=== PATIENT | female | born 1985 | race Caucasian/White ===

== ENCOUNTER → 2021-01-17 | Outpatient (CLI) | payer OTHER, BC ==
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
== END ==
LOC: RAD 13:50
PROVIDERS: ATTEND Family Medicine
DX: M54.6 Pain in thoracic spine (principal); M62.830 Muscle spasm of back; V87.7XXA Person injured in collision between other specified motor vehicles (traffic), initial encounter
CPT/HCPCS: 72072

== ENCOUNTER → 2021-09-13 | Outpatient (CLI) | payer OTHER ==
[~2021-09-13] VITALS: Ht 154.9 cm; Wt 54.4 kg
[~2021-09-13] MED LIST: ACETAMINOPHEN 500 MG TAB (TYLENOL) PO PRN; BAMLANIVIMAB 700 MG/ETESEVIMAB 1,400 MG IN NS IV ONE; EPINEPHrine INJECTION 1 MG/ML AMP IM PRN; ONDANSETRON 4 MG/2 ML (SDV) Z0FRAN IV PRN; diphenhydrAMINE 50 MG/ML INJ (BENADRYL) IV PRN
[2021-09-13 11:31] VITALS: BP 113/81
[2021-09-13 13:08] VITALS: BP 99/66
== END ==
LOC: INFUSION 11:27 → EDBD 11:27 → MERGE 11:27
PROVIDERS: ATTEND Physician Assistant
DX: U07.1 COVID-19 (principal)

== ENCOUNTER 2021-11-25 15:07 | Emergency (ER) | payer OTHER ==
[~2021-11-25] VITALS: Ht 154.9 cm; Wt 52.2 kg
[2021-11-25 15:43] LABS: BILIRUBIN,URINE NEGATIVE (NEGATIVE); CLARITY,URINE CLEAR; COLOR,URINE YELLOW; GLUCOSE, URINE (UA) NEGATIVE (NEGATIVE); KETONES,URINE NEGATIVE (NEGATIVE); LEUKOCYTE ESTERASE ,URINE NEGATIVE (NEGATIVE); NITRITE,URINE NEGATIVE (NEGATIVE); PROTEIN,URINE NEGATIVE (NEGATIVE)
[2021-11-25 15:49] LABS: BACTERIA,URINE NEGATIVE /HPF; SQUAMOUS EPITHELIAL CELL,UR RARE /HPF
--- NOTE | 2021-11-25 16:25 | ED GU-Female ---
General Chief Complaint: Abdominal/GI Problems Stated Complaint: SIDE PAIN Nursing Triage Note: PT AMB TO TRIAGE WITH COMPLAINT OF RIGHT SIDE/HIP PAIN. STATES PAIN STARTED A WEEK AGO. WORSENED TODAY WITH WALKING AND COUGHING. Source: patient, spouse Exam Limitations: no limitations History of Present Illness Date Seen by Provider: Nov 25, 2021 Time Seen by Provider: 16:05 Initial Comments Patient to the ER by private conveyance with chief complaint for the past 2-1/2 to 3 weeks has been having some slow building pain in her right lower quadrant abdomen. She says she did not notice until right before her period 2 weeks ago she and her were having some painful intercourse based on position. When they change position it no longer hurt. She says is continued to hurt and she has not taken anything for the pain today. 7 out of 10 constant pain. No nausea vomiting fever chills sweats dysuria discharge diarrhea constipation. She had a normal bowel movement this morning. She last ate 2 hours ago. No abdominal surgeries. No rash itching or burning on her right lower quadrant. No history of PID, STD. Allergies and Home Medications Allergies Coded Allergies: Penicillins (Verified Allergy, Unknown, 09/14/21) Patient Home Medication List Home Medication List Reviewed: Yes Review of Systems Review of Systems Constitutional: No chills, No diaphoresis EENTM: No ear discharge, No ear pain Respiratory: No cough, No short of breath Cardiovascular: No chest pain, No palpitations Gastrointestinal: abdominal pain; No constipation, No diarrhea, No nausea Genitourinary: denies burning, denies discharge, denies dysuria Musculoskeletal: No back pain, No joint pain Psychiatric/Neurological: Denies Anxiety, Denies Depressed All Other Systemes Reviewed Negative Unless Noted: Yes Past Iwcwdat-Ijrklq-Dvxxal Hx Patient Social History Tobacco Use?: Yes Tobacco type used: Cigarettes Smoking Status: Current Everyday Smoker Use of E-Cig and/or Vaping dev: No Substance use?: Yes Substance type: Marijuana Alcohol Use?: Yes Alcohol type: Beer Alcohol Frequency: Daily Pt feels they are or have been: No Immunizations Up To Date Influenza Vaccine Up-to-Date: No; Not Current Physical Exam Vital Signs Vital Signs - First Documented 11/25/21 15:20 Pulse 98 Resp 16 B/P (MAP) 141/94 (110) Pulse Ox 99 O2 Delivery Room Air Capillary Refill : Less Than 3 Seconds Height, Weight, BMI Height: '" Weight: lbs. oz. kg; 21.00 BMI Method: General Appearance: WD/WN, mild distress HEENT: PERRL/EOMI, pharynx normal Neck: non-tender, full range of motion Cardiovascular: normal peripheral pulses, regular rate, rhythm Respiratory: lungs clear, normal breath sounds, no respiratory distress, no accessory muscle use Gastrointestinal: normal bowel sounds, soft, rebound (Right lower quadrant), tenderness (Right lower quadrant McBurney's point), other (Negative for Rovsing sign or mesenteric signs.) Extremities: normal range of motion, non-tender, normal capillary refill Neurologic/Psychiatric: alert, normal mood/affect, oriented x 3 Skin: normal color, warm/dry Progress/Results/Core Measures Suspected Sepsis SIRS Temperature: Pulse: 98 Respiratory Rate: 16 Laboratory Tests 11/25/21 17:16: White Blood Count 9.2 Blood Pressure 141 /94 Mean: 110 Laboratory Tests 11/25/21 17:16: Creatinine 0.75, Platelet Count 252, Total Bilirubin 0.7 Results/Orders Lab Results Laboratory Tests Test 11/25/21 15:24 11/25/21 17:16 Range/Units Urine Color YELLOW Urine Clarity CLEAR Urine pH 6.0 5-9 Urine Specific Firth 1.010 L 1.016-1.022 Urine Protein NEGATIVE NEGATIVE Urine Glucose (UA) NEGATIVE NEGATIVE Urine Ketones NEGATIVE NEGATIVE Urine Nitrite NEGATIVE NEGATIVE Urine Bilirubin NEGATIVE NEGATIVE Urine Urobilinogen 0.2 < = 1.0 MG/DL Urine Leukocyte Esterase NEGATIVE NEGATIVE Urine RBC (Auto) NEGATIVE NEGATIVE Urine RBC NONE /HPF Urine WBC NONE /HPF Urine Squamous Epithelial Cells RARE /HPF Urine Crystals NONE /LPF Urine Bacteria NEGATIVE /HPF Urine Casts NONE /LPF Urine Mucus NEGATIVE /LPF Urine Culture Indicated NO White Blood Count 9.2 4.3-11.0 10^3/uL Red Blood Count 4.74 3.80-5.11 10^6/uL Hemoglobin 15.4 11.5-16.0 g/dL Hematocrit 46 35-52 % Mean Corpuscular Volume 96 80-99 fL Mean Corpuscular Hemoglobin 33 25-34 pg Mean Corpuscular Hemoglobin Concent 34 32-36 g/dL Red Cell Distribution Width 13.2 10.0-14.5 % Platelet Count 252 130-400 10^3/uL Mean Platelet Volume 9.5 9.0-12.2 fL Immature Granulocyte % (Auto) 0 % Neutrophils (%) (Auto) 66 42-75 % Lymphocytes (%) (Auto) 24 12-44 % Monocytes (%) (Auto) 9 0-12 % Eosinophils (%) (Auto) 1 0-10 % Basophils (%) (Auto) 1 0-10 % Neutrophils # (Auto) 6.1 1.8-7.8 10^3/uL Lymphocytes # (Auto) 2.3 1.0-4.0 10^3/uL Monocytes # (Auto) 0.8 0.0-1.0 10^3/uL Eosinophils # (Auto) 0.1 0.0-0.3 10^3/uL Basophils # (Auto) 0.1 0.0-0.1 10^3/uL Immature Granulocyte # (Auto) 0.0 0.0-0.1 10^3/uL Sodium Level 139 135-145 MMOL/L Potassium Level 4.1 3.6-5.0 MMOL/L Chloride Level 105 98-107 MMOL/L Carbon Dioxide Level 23 21-32 MMOL/L Anion Gap 11 5-14 MMOL/L Blood Urea Nitrogen 10 7-18 MG/DL Creatinine 0.75 0.60-1.30 MG/DL Estimat Glomerular Filtration Rate 106 BUN/Creatinine Ratio 13 Glucose Level 100 70-105 MG/DL Calcium Level 9.6 8.5-10.1 MG/DL Corrected Calcium 9.2 8.5-10.1 MG/DL Total Bilirubin 0.7 0.1-1.0 MG/DL Aspartate Amino Transf (AST/SGOT) 19 5-34 U/L Alanine Aminotransferase (ALT/SGPT) 14 0-55 U/L Alkaline Phosphatase 43 40-136 U/L C-Reactive Protein High Sensitivity 0.08 0.00-0.50 MG/DL Total Protein 7.7 6.4-8.2 GM/DL Albumin 4.5 3.2-4.5 GM/DL My Orders Orders - CHETAN REYES Ua Culture If Indicated (11/25/21 15:28) Urine Bedside (11/25/21 15:28) Us Pelvic (Non Ob)38134 (11/25/21 16:17) Ed Iv/Invasive Line Start (11/25/21 16:17) Ns Iv 500 Ml (Sodium Chloride 0.9%) (11/25/21 16:30) Cbc With Automated Diff (11/25/21 16:17) Comprehensive Metabolic Panel (11/25/21 16:17) Hs C Reactive Protein (11/25/21 16:17) Ketorolac Injection (Toradol Injection) (11/25/21 16:30) Oxycodone/Apap 5/325mg Tablet (Percocet (11/25/21 18:15) Medications Given in ED Current Medications Medications Dose Ordered Sig/Milena Route Start Time Stop Time Status Last Admin Dose Admin Ketorolac Tromethamine 30 mg ONCE ONCE IVP 11/25/21 16:30 11/25/21 16:31 DC 11/25/21 17:17 30 MG Sodium Chloride 500 ml @ 0 mls/hr Q0M ONCE IV 11/25/21 16:30 11/25/21 16:31 DC 11/25/21 17:17 0 MLS/HR Vital Signs/I&O 11/25/21 15:20 Pulse 98 Resp 16 B/P (MAP) 141/94 (110) Pulse Ox 99 O2 Delivery Room Air Capillary Refill : Less Than 3 Seconds Blood Pressure Mean: 110 Progress Note #1: Time: 16:25 Progress Note Toradol for her pain, half a liter of fluids, labs CRP and pelvic ultrasound. If that is negative will consider a CT of the abdomen pelvis looking for appendicitis. Progress Note #2: Time: 18:41 Progress Note Lab work is unremarkable. Very unlikely she has appendicitis or colitis. S uspect that the large ovarian cyst would explain her symptoms. We did discuss follow-up with a elementary instructional coach. She would like to follow-up with Dr. Gusman. We will give her the number. We will provide her with some pain medicines. She says that she gets very nauseated on large doses of hydrocodone so we will try Percocet. Diagnostic Imaging Diagonstic Imaging: Ultrasound Plain Films/CT/US/NM/MRI: abdomen, pelvis Comments [facility]. [place], [place] NAME: ALBA PIMENTELPATRICK Fung [facility] REC#: [id number] PT STATUS: REG ER : 1985 PHYSICIAN: CHETAN REYES MD ADMIT DATE: 11/25/21/ER Draft Date of Exam:11/25/21 US PELVIC (NON OB)[id number] PROCEDURE: US PELVIC (NON OB) TECHNIQUE: Multiple real-time grayscale images were obtained over the pelvis in various projections transabdominally. INDICATION: Right-sided pelvic pain. COMPARISON: None FINDINGS: Uterus is anteverted and measures 8.3 cm in length 4.3 cm transversely by 3.3 cm in AP dimension. No suspicious myometrial mass type lesions are seen. Endometrial stripe is within normal limits at 11 mm in AP thickness. Endometrial stripe is uniformly hyperechoic. Right ovary demonstrates multiple follicles, but has an otherwise unremarkable sonographic appearance. It measures 3.5 x 2.6 x 2.3 cm. There is a large complex multiseptated cystic-appearing structure associated with the left ovary. Color flow images show no evidence of internal vascularity. There is posterior acoustic enhancement. Area in question measures 6.9 x 5.8 x 4.5 cm. Separately, the left ovary has an unremarkable sonographic appearance and measures 4.5 x 3.1 x 3.4 cm. There is no free fluid. IMPRESSION: 1. Probable large hemorrhagic cyst associated with the left ovary. Followup in 2-3 cycles is recommended to ensure appropriate interval resolution. 2. Small amount of free fluid; possibly physiologic. Dictated on workstation # [id number] Dict: 11/25/21 1648 Trans: 11/25/21 1652 CV [id number] Interpreted by: GE SCHMITT MD Electronically signed by: Reviewed: Reviewed by Me Departure Impression Primary Impression: Right ovarian cyst Disposition: 01 HOME, SELF-CARE Condition: Stable Departure-Patient Inst. Decision time for Depature: 18:42 Referrals: GAGAN GUSMAN,LOCAL PHYSICIAN (PCP) Primary Care Physician Patient Instructions: Ovarian Cyst Removal (DC) Add. Discharge Instructions: Call Dr. Gusman's office first thing in the morning and request a follow-up appointment. Tylenol and Motrin or naproxen as necessary for pain control. You may also use heating pads and distraction. If your pain is more significant then you should take 1 tablet of oxycodone every 4 hours as necessary. Oxycodone will cause constipation and I recommend you use MiraLAX or similar laxatives stay regular. If you have nausea take 1 tablet of Zofran every 6 hours as necessary. If you have intractable, severe pain that doubles you over, keeps you from being able to walk or talk and I recommend you promptly return to the nearest ER for evaluation. All discharge instructions reviewed with patient and/or family. Voiced understanding. Scripts Ondansetron (Ondansetron Odt) 4 Mg Tab.rapdis 4 MG PO Q6H PRN for NAUSEA/VOMITING, #10 TAB 0 Refills Prov: CHETAN REYES 11/25/21 Oxycodone HCl/Acetaminophen (Oxycodone-Acetaminophen 5-325) 1 Each Tablet 1 EACH PO Q4H PRN for PAIN-MODERATE MDD 6 for 3 Days, #15 TAB 0 Refills Prov: CHETAN REYES 11/25/21 Copy Copies To 1: GAGAN GUSMAN DO CHETAN REYES Nov 25, 2021 16:25
[2021-11-25] MEDS ORDERED: NS IV 500 ML 500 ML IV ONE (16:30)
[2021-11-25] MEDS ORDERED: KETOROLAC 30 MG/ML VIAL IVP ONE (16:30)
--- NOTE | 2021-11-25 16:53 | Diagnostic Imaging Report ---
PROCEDURE: US PELVIC (NON OB) TECHNIQUE: Multiple real-time grayscale images were obtained over the pelvis in various projections transabdominally. INDICATION: Right-sided pelvic pain. COMPARISON: None FINDINGS: Uterus is anteverted and measures 8.3 cm in length 4.3 cm transversely by 3.3 cm in AP dimension. No suspicious myometrial mass type lesions are seen. Endometrial stripe is within normal limits at 11 mm in AP thickness. Endometrial stripe is uniformly hyperechoic. Right ovary demonstrates multiple follicles, but has an otherwise unremarkable sonographic appearance. It measures 3.5 x 2.6 x 2.3 cm. There is a large complex multiseptated cystic-appearing structure associated with the left ovary. Color flow images show no evidence of internal vascularity. There is posterior acoustic enhancement. Area in question measures 6.9 x 5.8 x 4.5 cm. Separately, the left ovary has an unremarkable sonographic appearance and measures 4.5 x 3.1 x 3.4 cm. There is no free fluid. IMPRESSION: 1. Probable large hemorrhagic cyst associated with the left ovary. Followup in 2-3 cycles is recommended to ensure appropriate interval resolution. 2. Small amount of free fluid; possibly physiologic. Dictated by: Dictated on workstation # [id number]
[2021-11-25 17:21] LABS: BASOPHILS # (AUTO) 0.1 10^3/uL (0.0-0.1); BASOPHILS % (AUTO) 1 % (0-10); EOSINOPHILS # (AUTO) 0.1 10^3/uL (0.0-0.3); EOSINOPHILS % (AUTO) 1 % (0-10); HEMATOCRIT 46 % (35-52); HEMOGLOBIN 15.4 g/dL (11.5-16.0); LYMPHOCYTES # (AUTO) 2.3 10^3/uL (1.0-4.0); LYMPHOCYTES % (AUTO) 24 % (12-44); MEAN CORPUSCULAR HEMOGLOBIN 33 pg (25-34); MEAN CORPUSCULAR HGB CONC 34 g/dL (32-36); MEAN CORPUSCULAR VOLUME 96 fL (80-99); MEAN PLATELET VOLUME 9.5 fL (9.0-12.2); MONOCYTES # (AUTO) 0.8 10^3/uL (0.0-1.0); MONOCYTES % (AUTO) 9 % (0-12); NEUTROPHILS # (AUTO) 6.1 10^3/uL (1.8-7.8); NEUTROPHILS % (AUTO) 66 % (42-75); PLATELET COUNT 252 10^3/uL (130-400); WHITE BLOOD COUNT 9.2 10^3/uL (4.3-11.0)
[2021-11-25 17:32] LABS: ALBUMIN 4.5 GM/DL (3.2-4.5); POTASSIUM 4.1 MMOL/L (3.6-5.0)
[2021-11-25 17:33] LABS: CALCIUM 9.6 MG/DL (8.5-10.1)
[2021-11-25 17:35] LABS: TOTAL PROTEIN 7.7 GM/DL (6.4-8.2)
[2021-11-25 17:36] LABS: BILIRUBIN,TOTAL 0.7 MG/DL (0.1-1.0)
[2021-11-25 17:38] LABS: CREATININE SERUM 0.75 MG/DL (0.60-1.30)
[2021-11-25] MEDS ORDERED: oxyCODONE/APAP 5/325MG (PERCOCET 5) TABLET PO ONE (18:15)
[2021-11-25] MEDS ORDERED: OXYC1TAB11 PO (18:50)
[2021-11-25] MEDS ORDERED: ONDA4TAB11 PO (18:50)
[2021-11-25] MEDS ORDERED: RX-ONDANSETRON 4 MG ODT (ZOFRAN) PPK #4 PO STA (18:51)
[2021-11-25] MEDS ORDERED: RX-OXYCODONE/APAP 5-325 MG #4 TAB PK PO PRN (19:00)
[2021-11-25 19:09] VITALS: BP 135/86
[2021-11-26] MEDS ORDERED: OXYC1TAB11 PO (13:03)
== END 2021-11-25 19:09 | disposition home or self-care (01) ==
LOC: EDUNIT# 15:07 → ER 15:09
DX: N83.201 Unspecified ovarian cyst, right side (principal); F17.210 Nicotine dependence, cigarettes, uncomplicated
CPT/HCPCS: 36415; 76856; 80053; 81000; 84703; 85025; 86141

== ENCOUNTER 2021-12-01 14:38 | Outpatient (CLI) | payer OTHER ==
[~2021-12-01] VITALS: Ht 154.9 cm; Wt 52.3 kg
[~2021-12-01 14:38] MED LIST changes: -ACETAMINOPHEN 500 MG TAB (TYLENOL) PO PRN; -BAMLANIVIMAB 700 MG/ETESEVIMAB 1,400 MG IN NS IV ONE; -EPINEPHrine INJECTION 1 MG/ML AMP IM PRN; +ONDA4TAB11 PO; -ONDANSETRON 4 MG/2 ML (SDV) Z0FRAN IV PRN; +OXYC1TAB11 PO; -diphenhydrAMINE 50 MG/ML INJ (BENADRYL) IV PRN
[2021-12-01] MEDS ORDERED: MULT-1136 PO (15:47)
[2021-12-01] MEDS ORDERED: ASCO100024 PO (15:47)
[2021-12-02] MEDS ORDERED: OXC5T PO (12:59)
== END 2021-12-01 15:56 | disposition home or self-care (01) ==
LOC: PREOP 14:38
PROVIDERS: ATTEND Obstetrics & Gynecology
DX: Z01.818 Encounter for other preprocedural examination (principal)

== ENCOUNTER 2021-12-02 05:50 | Day surgery (SDC) | payer OTHER ==
[2021-12-02] VITALS (13 sets, daily range): BP systolic 102–129; BP diastolic 65–91
[~2021-12-02] VITALS: Ht 154 cm; Wt 52.3 kg
[~2021-12-02 05:50] MED LIST changes: +ASCO100024 PO; +MULT-1136 PO
[2021-12-02] MEDS: LACTATED RINGERS 1,000 ML IV PRN ×3 (06:25→11:45)
[2021-12-02] MEDS ORDERED: GLYCOPYRROLATE 0.2 MG/ML (ROBINUL) 2 ML VIAL ONE (06:53)
[2021-12-02] MEDS ORDERED: ROCURONIUM 10 MG/ML 5 ML SYRINGE IV ONE ×2 (06:53→08:54)
[2021-12-02] MEDS ORDERED: ONDANSETRON 4 MG/2 ML (SDV) Z0FRAN ONE (06:53)
[2021-12-02] MEDS ORDERED: LIDOCAINE PF 2% 5 ML (XYLOCAINE) VIAL ONE (06:53)
[2021-12-02] MEDS ORDERED: fentaNYL INJ 100 MCG/2 ML AMP ONE (06:53)
[2021-12-02] MEDS ORDERED: NEOSTIGMINE 3 MG/3 ML VIAL ONE (06:53)
[2021-12-02] MEDS ORDERED: MIDAZOLAM 2 MG/2 ML (VERSED) VIAL ONE (06:53)
[2021-12-02] MEDS ORDERED: proPOfol 200 MG/20 ML (DIPRIVAN) VIAL IV ONE (06:53)
[2021-12-02] MEDS ORDERED: METHYLENE BLUE 0.5% (PROVAYBLUE) 50 mg/10 ml vial IV ONE (07:09)
[2021-12-02] MEDS ORDERED: LIDOCAINE/EPI 1%-1:200,000 (XYLOCAINE) 30 ML VIAL ONE (07:09)
[2021-12-02] MEDS ORDERED: ceFAZolin INJECTION 2,000 MG ONE (08:20)
[2021-12-02] MEDS ORDERED: HYDROmorphone 2 MG/ML VIAL (DILAUDID) ONE (09:36)
[2021-12-02] MEDS ORDERED: morphine INJ 10 MG/ML 1ML (SYR OR VIAL) IVP ONE (10:00)
[2021-12-02] MEDS ORDERED: HYDROmorphone 2 MG/ML VIAL (DILAUDID) IV ONE (10:00)
[2021-12-02] MEDS ORDERED: ONDANSETRON 4 MG/2 ML (SDV) Z0FRAN IVP PRN (10:00)
[2021-12-02] MEDS ORDERED: SEVOFLURANE (ULTANE) 15 ML INHAL SOLN ONE ×2 (10:06→10:07)
[2021-12-02] MEDS ORDERED: LACTATED RINGERS 1,000 ML IV SCH (10:15)
[2021-12-02] MEDS ORDERED: morphine INJ 4 MG/ML 1 ML (VIAL/SYRINGE) IV PRN (10:15)
[2021-12-02] MEDS ORDERED: ONDANSETRON 4 MG/2 ML (SDV) Z0FRAN IV PRN (10:15)
[2021-12-02] MEDS ORDERED: METOCLOPRAMIDE INJ 10 MG/2 ML (REGLAN) IV PRN (10:15)
[2021-12-02] MEDS ORDERED: KETOROLAC 30 MG/ML VIAL IV SCH (10:15)
[2021-12-02] MEDS ORDERED: KETOROLAC 30 MG/ML VIAL ONE (10:47)
--- NOTE | 2021-12-02 10:48 | Laparoscopy Operative Note ---
Laparoscopy Procedure Note Laparoscopy Procedure Note Patient Name: Miriam wHang Procedure Date: 12/02/21 @[] Pre operative Diagnosis: with sono findings with cystic structure and pelvic pain Post operative Diagnosis: Left Fallopian tube with large cyst, right Fallopian tube adhesions, appendix adhesed to right broad ligament and adnexal structures Name of the Procedure: ~Operative laparoscopy with [appendectomy by Dr. Vasquez and left salpingectomy with lysis of adhesions Surgeon: ANDREA EDWARDS Disability Insurance Claim Examiner: none Anesthesia: General Specimens: Left Lupien tube and appendix EBL: Minimal mL Complications: None Indication for the procedure: 0- / presenting with [complaints of acute on chronic pelvic pain. Patient was evaluated in the emergency room November 25 and sonogram revealed a 6.9 cm multiseptated cystic structure. Patient reported pain not adequately controlled with oral pain medications.] Risks, benefits and alternatives to the procedure were discussed, and informed consent was obtained. Description of procedure: The patient was brought to the operating room. The patient was placed under gen eral anesthesia by our anesthesia colleagues. A time out was performed. The patient was positioned in dorsal lithotomy with the use of stirrups. A speculum was placed in the vagina. A single toothed tenaculum was placed on the anterior lip of the cervix. A coned canula was placed in the external os. Storey catheter was placed and attention was turned the abdominal portion of the procedure. An infraumbilical incision was made with a knife and the Veress needle was introduced into the peritoneal cavity, which was confirmed with an opening pressure of [] mm Hg.The abdomen was then insufflated to a pressure of 15 mm Hg with CO2 gas.The 5 mm laparoscopic trochar was then introduced through this incision after the Veress needle was removed.The camera was introduced into the abdomen, confirming intraperitoneal placement and lack of operative injury to the stomach, bowel, vessels or omentum. A 5 mm port sites were placed in the left lateral lower quadrants under direct visualization. The operative findings were of a [the appendix coursed over the right adnexal structures and was adhesed along the course. Right fallopian tube fimbriated end was visualized along the right pelvic sidewall and encased the right ovary. No evidence of dilation or infection was appreciated within the right fallopian tube. The left fallopian tube was dilated the mid and distal thirds with a large cystic structure and encased and peritoneal adhesions. Dr. Vasquez graciously entered the OR and performed an appendectomy. Please refer to his operative report. The left fallopian tube was exposed through adhesiolysis and the cyst drained revealing clear fluid. The cyst and adhesions encased the fimbriated end which was never completely able to be visualized. The left ovary was exposed after extensive breakdown of adhesions and a hemorrhagic cyst was drained throughout the course of exposure of the ovary. Confirmation of route of the ureter was visualized as it coursed over the pelvic brim and posterior to the large cyst wall. A small paratubal cyst was noted as well. After reassurance of ability to amputate the left Lupien tube without disrupting the infundibulopelvic ligament vascular source to the left ovary, the left fallopian tube was amputated with LigaSure device. The specimen was placed in an Endobag and delivered through the 12 mm port and sent for pathology. Decision was made to not further manipulate to the right fallopian tube as the patient is still desiring conception. Chromotubation was performed and dye did spill from the right tube into the pelvis. The pelvis was irrigated hemostasis was assured. The pelvis was irrigated and noted to be hemostatic. The ports were pulled under direct visualization. The gas was released. The fascia and the 12 mm port incision was closed with a [id number] 0 Vicryl suture. The incisions were closed with 4-0 Monocryl. The pelvic instruments were also removed and Storey catheter removed. The patient was brought to the recovery room in stable condition after awakening from general anesthesia.. Operative findings and procedure were discussed with the patient significant other and we will schedule a 1 week follow-up to discuss findings Vitals - Labs Vital Signs - I&O Vital Signs Date Time Temp Pulse Resp B/P (MAP) Pulse Ox O2 Delivery O2 Flow Rate FiO2 12/02/21 10:30 20 109/69 (82) 97 Room Air 12/02/21 10:30 Room Air 12/02/21 10:20 20 118/76 (90) 98 Room Air 12/02/21 10:15 Room Air 12/02/21 10:10 20 126/87 (100) 99 OxyMask 3 12/02/21 10:00 OxyMask 6 12/02/21 10:00 20 129/86 (100) 99 OxyMask 4 12/02/21 09:51 36.4 20 124/85 (98) 100 OxyMask 6 12/02/21 09:51 OxyMask 6 12/02/21 06:25 36.2 105 18 128/91 (103) 98 Room Air ANDREA EDWARDS MD Dec 02, 2021 10:48
[2021-12-02] MEDS ORDERED: ACETAMINOPHEN 500 MG TAB (TYLENOL) ONE (11:57)
[2021-12-02] MEDS ORDERED: ACETAMINOPHEN 500 MG TAB (TYLENOL) PO SCH (12:00)
[2021-12-02] MEDS ORDERED: IBUPROFEN 600 MG (MOTRIN) TAB PO SCH (12:00)
[2021-12-02] MEDS ORDERED: OXC5T PO (12:59)
--- NOTE | 2021-12-02 13:46 | Anesthesia-General Post-Op ---
General Patient Condition Mental Status/LOC: Same as Preop Cardiovascular: Satisfactory Nausea/Vomiting: Absent Respiratory: Satisfactory Pain: Controlled Complications: Absent Post Op Complications Complications None Follow Up Care/Instructions Patient Instructions None needed. Anesthesia/Patient Condition Patient Condition Patient was just discharged to home from [facility] [place]. She was doing well prior to her discharge, she did C/O some lower abd pain which is to be expected and some minimal nausea, stable vital signs, no apparent adverse anesthesia problems. AICHA RIVERO DO Dec 02, 2021 13:46
--- NOTE | 2021-12-03 00:57 | OPERATIVE REPORT ---
DATE OF SERVICE: 12/02/2021 INTRAOPERATIVE CONSULT WITH APPENDECTOMY SURGEON: Angela Vasquez DO ANESTHESIA: General. PROCEDURE: Laparoscopic appendectomy. ESTIMATED BLOOD LOSS: Minimal. COMPLICATIONS: None. INDICATIONS: The patient is a 36-year-old female who has been having acute on chronic pelvic pain. Her pain was not adequately controlled with oral pain medications, so Dr. Don had discussed doing operative laparoscopy and during her initial evaluation noted the appendix to be coursing along the right adnexal structures. This was significantly adhered especially more distally where appearance of the appendix had been significantly adhered causing it to narrow or likely cause obliteration of the lumen. At this point, Dr. Don and I agreed that the appendix should be removed. PROCEDURE IN DETAIL: The patient already had a 5 mm trocar at the umbilicus and 5 mm trocar in the left lower quadrant. The left lower quadrant 5 mm trocar was then converted to a 12 mm trocar. Under direct visualization of the laparoscope, a 5 mm trocar was placed in the left lower quadrant. The appendix was then dissected around at the base of the appendix with a [place]. An Endo-ELLEN 2.5 stapler was then fired across the base of the appendix. The appendix was then grasped and elevated and the mesoappendix was then began to be divided where this was coursing down across the right adnexal structures. This was significantly adhered, so a [place] also used to insert right next to the appendix and gently began to divide and stretch the adhesions where a LigaSure also be utilized until all of the adhesions were then broken free to where the appendix was able to be removed. It was then placed in the Endobag and removed through the 12 mm trocar site. The case was then turned back to Dr. Don, so please see her dictation for the rest of the procedures. Job ID: [id number] DocumentID: [id number] Dictated Date: 12/02/2021 20:51:32 Industrial Manufacturing Technician Date: 12/03/2021 00:56:52 Dictated By: ANGELA VASQUEZ DO
== END 2021-12-02 13:20 | disposition home or self-care (01) ==
LOC: SDC 05:50
PROVIDERS: ATTEND Obstetrics & Gynecology
DX: K38.8 Other specified diseases of appendix (principal); N83.292 Other ovarian cyst, left side; N83.8 Other noninflammatory disorders of ovary, fallopian tube and broad ligament; D18.09 Hemangioma of other sites; N97.9 Female infertility, unspecified; F17.210 Nicotine dependence, cigarettes, uncomplicated; Z79.891 Long term (current) use of opiate analgesic
CPT/HCPCS: 84703; 87081; 94664